=== PATIENT | female | born 1990 | race Caucasian/White ===

== ENCOUNTER 2020-02-24 18:26 | Emergency (ER) | payer OTHER ==
[~2020-02-24] VITALS: Ht 162.6 cm; Wt 61.7 kg
[~2020-02-24 18:26] MED LIST: ACETAMINOPHEN325 M1 PO; ASPIR 8181 M1 PO; ASPIR 8181 MG; BENTYL 20 MG TA20 M1 PO; IBUPROFEN 400400 M1 PO; KEFLEX500 MG PO; LYRICA 75 MG CA75 MG PO; MACROBID 100 M100 M1 PO; NORCO 5-325 TA1 EACH PO; PRENATAL PO; PROZAC10 MG PO; UNISOM SLEEP AI25 MG PO
[2020-02-24] MEDS ORDERED: DESYREL150 MG PO (18:39)
[2020-02-24] MEDS ORDERED: TROKENDI XR200 MG PO (18:39)
[2020-02-24] MEDS ORDERED: TOPROL XL50 MG PO (18:39)
[2020-02-24] MEDS ORDERED: SYMBICORT160 MCG/4. INH (18:39)
[2020-02-24] MEDS ORDERED: BRINTELLIX20 MG PO (18:40)
[2020-02-24 19:02] LABS: ABSOLUTE BASOPHILS 0.1 thou/uL (0.0-0.2); ABSOLUTE EOSINOPHILS 0.2 thou/uL (0.0-0.7); ABSOLUTE LYMPHOCYTES 2.4 thou/uL (0.8-5.3); ABSOLUTE MONOCYTES 0.4 thou/uL (0.0-1.2); ABSOLUTE NEUTROPHILS 5.5 thou/uL (1.6-8.1); EOSINOPHILS 2.5 %; HEMATOCRIT 40.1 % (37.0-47.0); HEMOGLOBIN 13.5 gm/dL (12.0-15.0); LYMPHOCYTES 27.9 %; MCH 31.5 pg (26.0-34.0); MCHC 33.6 g/dL (28.0-37.0); MCV 93.7 fL (80.0-100.0); MONOCYTES 5.1 %; MPV 9.3 fl. (7.2-11.1); NUCLEATED RBCS 0 /100WBC; PLATELET COUNT* 246 thou/uL (150-400); POLYS 63.5 %; RBC 4.28 mil/uL (4.20-5.00); RDW-CV 12.4 % (10.5-14.5); WBC 8.6 thou/uL (4.0-11.0)
[2020-02-24 19:16] LABS: CALCIUM 8.5 mg/dL (8.5-10.1); CREATININE 0.8 mg/dL (0.6-1.3); POTASSIUM 3.6 mmol/L (3.5-5.1)
[2020-02-24 19:20] LABS: ALBUMIN 4.2 g/dL (3.4-5.0); TOTAL BILIRUBIN 0.4 mg/dL (<0.1-1.0); TOTAL PROTEIN 7.6 g/dL (6.4-8.2)
[2020-02-24 20:26] LABS: URINE BILIRUBIN NEGATIVE (Negative); URINE BLOOD NEGATIVE (Negative); URINE CLARITY CLEAR; URINE COLOR YELLOW; URINE GLUCOSE-RANDOM NEGATIVE (Negative); URINE KETONES NEGATIVE (Negative); URINE LEUKOCYTES-REFLEX NEGATIVE (Negative); URINE NITRITE-REFLEX NEGATIVE (Negative); URINE PROTEIN NEGATIVE (Negative); URINE UROBILINOGEN 0.2 E.U./dl (0.2-1.0)
[2020-02-24 20:57] LABS: AMP/METHAMP Negative (Negative); BARBITURATES Negative (Negative); BENZODIAZEPINES Negative (Negative); COCAINE Negative (Negative); METHADONE Negative (Negative); OPIATES Negative (Negative); PCP Negative (Negative); THC Negative (Negative)
[2020-02-24] MEDS ORDERED: NAPROSYN500 MG PO (22:09)
[2020-02-24] MEDS ORDERED: FLEXERIL PO (22:09)
[2020-02-24 22:34] VITALS: BP 138/88
--- NOTE | 2020-02-25 16:25 | EKG ---
[place] [address] ELECTROCARDIOGRAM REPORT Name: EROSSHANTE MARTINEZ Room: [facility]#: [id number] Admission: 02/24/20 Attend Phys: Discharge: 02/24/20 Date of : 86 Date of Service: 02/24/201830 Report #: [id number] THIS REPORT FOR: //name// [facility] ED Test Date: 2020-02-24 Test Time: 18:31:07 Pat Name: SHANTE COONEY Department: Room: Gender: F Neurocritical Care Physician: TDS : 1990 Requested By: Les Martino Order Number: [id number] MD: Quirino Johnson Measurements Intervals [place] Rate: 87 P: 76 OK: 156 QRS: 58 QRSD: 99 T: 35 QT: 369 QTc: 444 Interpretive Statements Sinus rhythm Borderline T wave abnormalities Compared to ECG 07/10/2015 09:06:00 T-wave abnormality now present Electronically Signed On 02-25-2020 16:25:17 CDT by Quirino Johnson [email or web address] <ELECTRONICALLY SIGNED> By: Quirino Johnson MD, [facility] 02/25/20 1625 183 30 Quirino Johnson MD, [facility] /EPI
== END 2020-02-24 22:38 | disposition home or self-care (01) ==
LOC: M.ERS 18:26
PROVIDERS: Physician Assistant
DX: R07.89 Other chest pain (principal); Z20.828 Contact with and (suspected) exposure to other viral communicable diseases; Z88.2 Allergy status to sulfonamides; Z90.89 Acquired absence of other organs; Z86.73 Personal history of transient ischemic attack (TIA), and cerebral infarction without residual deficits; Z90.710 Acquired absence of both cervix and uterus; Z79.899 Other long term (current) drug therapy

== ENCOUNTER 2020-03-30 11:31 | Emergency (ER) | payer OTHER ==
[~2020-03-30] VITALS: Ht 162.6 cm; Wt 63.5 kg
[~2020-03-30 11:31] MED LIST changes: +BRINTELLIX20 MG PO; +DESYREL150 MG PO; +FLEXERIL PO; +NAPROSYN500 MG PO; +SYMBICORT160 MCG/4. INH; +TOPROL XL50 MG PO; +TROKENDI XR200 MG PO
[2020-03-30] MEDS ORDERED: ALPRAZOLAM (11:44)
[2020-03-30] MEDS ORDERED: COLCRYS0.6 MG PO (11:44)
[2020-03-30 12:29] LABS: ABSOLUTE BASOPHILS 0.1 thou/uL (0.0-0.2); ABSOLUTE EOSINOPHILS 0.2 thou/uL (0.0-0.7); ABSOLUTE LYMPHOCYTES 2.2 thou/uL (0.8-5.3); ABSOLUTE MONOCYTES 0.4 thou/uL (0.0-1.2); ABSOLUTE NEUTROPHILS 4.2 thou/uL (1.6-8.1); BASOPHILS 0.8 %; EOSINOPHILS 2.3 %; HEMOGLOBIN 14.3 gm/dL (12.0-15.0); MCH 32.1 pg (26.0-34.0); MCV 94.5 fL (80.0-100.0); MONOCYTES 5.5 %; MPV 9.2 fl. (7.2-11.1); NUCLEATED RBCS 0 /100WBC; PLATELET COUNT* 224 thou/uL (150-400); POLYS 59.4 %; RBC 4.45 mil/uL (4.20-5.00); RDW-CV 12.6 % (10.5-14.5)
[2020-03-30 12:32] LABS: CALCIUM 9.2 mg/dL (8.5-10.1); CREATININE 0.9 mg/dL (0.6-1.3); POTASSIUM 4.2 mmol/L (3.5-5.1)
[2020-03-30 12:36] LABS: ALBUMIN 4.6 g/dL (3.4-5.0); TOTAL BILIRUBIN 0.9 mg/dL (<0.1-1.0); TOTAL PROTEIN 7.9 g/dL (6.4-8.2)
[2020-03-30 12:37] LABS: URINE BILIRUBIN NEGATIVE (Negative); URINE BLOOD NEGATIVE (Negative); URINE CLARITY CLEAR; URINE COLOR YELLOW; URINE GLUCOSE-RANDOM NEGATIVE (Negative); URINE KETONES NEGATIVE (Negative); URINE LEUKOCYTES-REFLEX NEGATIVE (Negative); URINE NITRITE-REFLEX NEGATIVE (Negative); URINE PROTEIN NEGATIVE (Negative); URINE UROBILINOGEN 0.2 E.U./dl (0.2-1.0)
[2020-03-30] MEDS ORDERED: ZOFRAN ODT4 MG PO (14:16)
[2020-03-30] MEDS ORDERED: CARAFATE 1 GM TA1 GM PO (14:16)
[2020-03-30 14:42] VITALS: BP 113/70
--- NOTE | 2020-03-31 09:30 | EKG ---
[place] [address] ELECTROCARDIOGRAM REPORT Name: SHANTE COONEY JUAN Room: [facility]#: [id number] Admission: 03/30/20 Attend Phys: Discharge: 03/30/20 Date of : [birth year] Date of Service: 03/30/20 1141 Report #: [id number] THIS REPORT FOR: //name// [facility] ED Test Date: 2020-03-30 Test Time: 11:41:20 Pat Name: SHANTE COONEY Department: Room: Gender: F [employer]: DARRICK : 1990 Requested By: Gladis Vazquez Order Number: [id number] Reading MD: Dave Iraheta Measurements Intervals [place] Rate: 93 P: 64 MD: 156 QRS: 59 QRSD: 84 T: 18 QT: 336 QTc: 418 Interpretive Statements Sinus rhythm Baseline wander in lead(s) II,III,aVR,aVL,aVF Compared to ECG 02/24/2020 18:31:07 T-wave abnormality no longer present Electronically Signed On 03-31-2020 9:29:50 CDT by Dave Iraheta [email or web address] <ELECTRONICALLY SIGNED> By: Dave Iraheta MD, [facility] 03/31/20 0929 1141 1141 Dave Iraheta MD, [facility] /EPI
== END 2020-03-30 14:43 | disposition home or self-care (01) ==
LOC: M.ERS 11:31
PROVIDERS: Personal Emergency Response Attendant
DX: R10.9 Unspecified abdominal pain (principal); R11.0 Nausea; Z90.710 Acquired absence of both cervix and uterus; Z79.899 Other long term (current) drug therapy; Z79.4 Long term (current) use of insulin; Z88.2 Allergy status to sulfonamides

== ENCOUNTER 2020-04-06 13:43 | Emergency (ER) | payer OTHER ==
[~2020-04-06] VITALS: Ht 162.6 cm; Wt 61.7 kg
[~2020-04-06 13:43] MED LIST changes: +ALPRAZOLAM; +CARAFATE 1 GM TA1 GM PO; +COLCRYS0.6 MG PO; +ZOFRAN ODT4 MG PO
[2020-04-06] MEDS ORDERED: MACROBID 100 M100 MG PO (13:52)
[2020-04-06 15:19] LABS: URINE BILIRUBIN NEGATIVE (Negative); URINE BLOOD NEGATIVE (Negative); URINE CLARITY CLEAR; URINE COLOR YELLOW; URINE GLUCOSE-RANDOM NEGATIVE (Negative); URINE KETONES NEGATIVE (Negative); URINE LEUKOCYTES-REFLEX NEGATIVE (Negative); URINE NITRITE-REFLEX NEGATIVE (Negative); URINE PROTEIN NEGATIVE (Negative); URINE UROBILINOGEN 0.2 E.U./dl (0.2-1.0)
== END 2020-04-06 15:47 | disposition home or self-care (01) ==
LOC: M.ERS 13:43
PROVIDERS: Physician Assistant
DX: R10.9 Unspecified abdominal pain (principal); Z53.21 Procedure and treatment not carried out due to patient leaving prior to being seen by health care provider

== ENCOUNTER → 2020-04-09 | Outpatient (CLI) | payer OTHER ==
[~2020-04-09] MED LIST changes: +MACROBID 100 M100 MG PO
== END ==
LOC: M.NUC 07:14
PROVIDERS: ATTEND Nurse Practitioner Family
DX: R10.9 Unspecified abdominal pain (principal)